=== PATIENT | female | born 1985 | race Caucasian/White ===

== ENCOUNTER 2021-06-16 23:08 | Emergency (ER) | payer MEDICAID, SELFPAY ==
[2021-06-16 23:18] VITALS: BP 130/79; PULSE 88; RESP 18; TEMP 36.7; O2SAT 97; BMI 46.9
--- NOTE | 2021-06-16 23:44 | ED_ITS ---
HPI - Neck Pain/Injury General: Chief Complaint: Neck Pain/Injury Stated Complaint: Slipped Disk In Neck Time Seen by Provider: 06/16/21 23:27 History of Present Illness: Patient is a 35-year-old female comes to the ED with neck pain. Patient has a history of chronic neck and lumbar back pain. Symptoms started approximately 3 days ago. Denies any injury or trauma to cause acute pain. Patient says she woke up with neck pain. Pain starts at the base of her neck and she describes it as achy. She then has a little burning type pain that radiates into her right shoulder. She rates pain currently a 7 out of 10. She has been taking ibuprofen for pain and also has tried massaging neck to help with symptoms. Denies any other symptoms. Associated symptoms: Denies headache(s) or nausea Review of Systems Const: Denies: fever(s), chills or fatigue Eyes: Denies: change in vision or eye discomfort ENMT: Denies: throat pain, odynophagia, nasal discharge or nasal congestion Card: Denies: chest pain, palpitations, edema, swelling of feet/ankles, dyspnea on exertion or orthopnea Resp: Denies: dyspnea, productive cough or non-productive cough GI: Denies: abdominal pain, nausea, vomiting, diarrhea, constipation or hem atochezia : Denies: flank pain, dysuria or hematuria Musc: Reports: neck pain; Denies: back pain or extremity swelling Skin/Breast: Denies: rash or new lesions Neuro: Denies: headache(s), numbness in extremities or weakness in extremities PFS ED PFSH: Medical History Chronic neck and back pain No pertinent family history Physical Exam Const: COMMON NORMALS: no acute distress, patient oriented x3 and alert GENERAL APPEARANCE: cooperative and comfortable HENMT: COMMON NORMALS: normocephalic HEAD & SCALP: normocephalic MOUTH: Normal oral and palatal mucosa present THROAT: posterior oropharynx normal and uvula midline Neck/C-Spine: COMMON NORMALS: supple GENERAL: Yes normal visual inspection CERVICAL SPINE: Yes cervical ROM normal, Yes pain with cervical ROM, No Cervical spine tenderness, Yes Paracervical muscle tenderness right and Yes Trapezius muscle tenderness right Resp: COMMON NORMALS: normal respiratory effort, No retractions, No use of accessory muscles and clear to auscultation bilaterally AUSCULTATION: clear to auscultation bilaterally Cardio: COMMON NORMALS: regular rate, regular rhythm, S1 normal heart sound present, S2 normal heart sound present, No gallops present (Cardio), No clicks present (Cardio), No murmurs present (Cardio) and Peripheral pulses 2+ throughout RATE: regular rate RHYTHM: regular rhythm HEART SOUNDS: S1 normal heart sound present and S2 normal heart sound present PERIPHERAL PULSES: Peripheral pulses 2+ throughout GI: COMMON NORMALS: Normal to inspection, nondistended, normoactive bowel sounds present, Soft to palpation, non-tender and no masses PALPATION: Yes Soft to palpation : COMMON NORMALS: Yes no CVA tenderness BLADDER/KIDNEY EXAM: Yes no CVA tenderness Back/Pelvis: COMMON NORMALS: no CVA tenderness Extremity: COMMON NORMALS: normal to inspection Neuro: COMMON NORMALS: patient oriented x3 and moves all extremities SENSORIUM/ORIENTATION: Yes alert Skin: GENERAL SKIN EXAM: dry skin Course Vital Signs: Vital signs: Vital Signs Temperature 98.1 F 06/16/21 23:18 Pulse Rate 86 06/17/21 00:12 Respiratory Rate 16 06/17/21 00:12 Blood Pressure 138/78 06/17/21 00:12 Pulse Oximetry 98 06/17/21 00:12 MDM - Neck Pain/Injury Medical Decision Making Patient is a 35-year-old female who comes to the ED with neck pain. Denies any injury or trauma and says she woke up with neck pain 3 days ago. She has a history of chronic cervical and lumbar pain. Pain described as a aching pain at the neck that turns into a burning pain that radiates to her right shoulder. Vitals are stable. Patient appears in no acute distress. She has some paracervical muscle tenderness to palpation. She also has some right trapezius muscle tenderness. She has full range of motion in neck but does endorse some pain with range of motion. Patient was given a dose of Toradol, Solu-Medrol and Norflex while here in the ED. Patient diagnosed with acute neck pain and was discharged home with a prescription for prednisone, (&\spelled methocarbamol. She was told to follow-up with her PCP in the next week for reevaluation. Return to ED precautions given. Patient understood and agreed with plan. Discharge Plan Discharge Patient Disposition: Home Clinical Impression: Neck pain, acute Condition: Stable Prescriptions: New prednisone 20 mg tablet 20 mg PO BID 5 Days Qty: 10 0RF Celebrex 100 mg capsule 100 mg PO BID PRN (Reason: pain) Qty: 20 0RF methocarbamol 750 mg tablet 750 mg PO Q8H PRN (Reason: muscle spasms and pain) Qty: 20 0RF Discharge Orders: Discharge ED (Routine); Ordered 06/17/21 Ordered By: Elton Romero Referrals: Archie Rivas, [Primary Care Provider] - Discharge Diet: Regular Discharge Activity: Increase activity as tolerated Activity Restrictions/Additional Instructions: Follow-up with medical provider as directed in the next 5 to 7 days reevaluation. Apply cold pack on neck and massage sore muscles up with symptoms. Stretch neck muscles out daily. Take medications as prescribed. Methocarbamol is a muscle relaxer and can cause some drowsiness so I recommend taking it at night before going to bed. Remember that prednisone can increase blood sugars so monitor blood sugars closer while taking prednisone. the ER or your medical provider if condition worsens. Please read and understand discharge instructions. Thank you for choosing [facility] for your healthcare needs today. Please realize this is an emergency room and that we are providing you with a medical screening exam and this may not be complete and all inclusive of all the testing and or work up that you may need to determine your ailment or severity of your illness. It is very important that you follow up as instructed or that you return to the Emergency Department should you have concerns or if your condition changes or worsens in any way. Coding Level of Care Code ED [employer] for [employer] Exam Comprehensive
[2021-06-16] MEDS: ketorolac 60 mg/2 mL INJ IM (23:58)
[2021-06-16] MEDS: orphenadrine 30 mg/mL Inj 2 mL 60 MG IM (23:59)
[2021-06-17 00:12] VITALS: BP 138/78; PULSE 86; RESP 16; O2SAT 98
== END 2021-06-17 00:13 | disposition home or self-care (01) ==
PROVIDERS: Emergency Provider Physician Assistant; PCP Family Medicine
DX: M54.2 Cervicalgia (principal)
CPT/HCPCS: 96372; 99283; J1885; J2360; J2930